=== PATIENT | female | born 1970 | race Hispanic/Latino ===

== ENCOUNTER 2021-04-26 23:35 | Emergency (ER) | payer OTHER ==
[2021-04-27] MEDS ORDERED: LIDOCAINE VISCOUS 2% SOLN 15 ML UDC ONE (00:16)
[2021-04-27] MEDS ORDERED: MAGNES/ALUMIN/SIMET 30ML UCUP ONE (00:16)
[2021-04-27 00:17] LABS: Urine Blood 3+ (Negative); Urine Glucose Trace (Negative); Urine Protein 3+ (Negative); Urine Specific Gravity <=1.005 (1.005-1.030); Urine pH 8.5 (5.0-7.0)
[2021-04-27 00:48] LABS: Absolute Lymphocytes (CBC) 2.7 K/uL (0.7-4.9); Hematocrit 37.1 % (36.0-45.0); Lymphocytes % 39.5 % (15.3-44.8); RBC Red Blood Cell Count 4.74 M/uL (3.86-4.86)
[2021-04-27 00:53] LABS: Protime INR 1.08
[2021-04-27 01:00] LABS: Urine RBC TNTC /HPF (NONE SEEN)
[2021-04-27 01:01] LABS: Urine Bacteria <20 /HPF (<20)
[2021-04-27 01:12] LABS: ALT/SGPT 13 U/L (12-78); AST/SGOT 12 U/L (15-37); Albumin 3.8 g/dL (3.4-5.0); Alkaline Phosphatase 54 U/L (45-117); BUN Blood Urea Nitrogen 10 mg/dL (7-18); Bicarbonate 24 mmol/L (21-32); Bilirubin Direct < 0.1 mg/dL (0-0.2); Bilirubin Total 0.3 mg/dL (0.2-1.0); Glucose Level 100 mg/dL (74-106); Magnesium 2.2 mg/dL (1.8-2.4); NT PRO-BNP 89 pg/mL (<125); Potassium 3.2 mmol/L (3.5-5.1); Protein, Total 7.9 g/dL (6.4-8.2); Sodium Level 142 mmol/L (136-145); Troponin (Emerg Dept Use Only) < 0.02 ng/mL (0.0-0.045)
[2021-04-27] MEDS ORDERED: POTASSIUM CL SA 10 MEQ TAB PO ONE (01:24)
--- NOTE | 2021-04-27 02:12 | ER ---
Nurse's Notes [facility] Name: Janice Atkins Age: 50 yrs Sex: Female : 1970 Arrival Date: 04/26/2021 Time: 23:41 Bed 13 Private MD: Diagnosis: Acute gastritis;Chest pain, unspecified Presentation: 04/26 23:49 Chief complaint: Chief complaint: Patient states: she has been having stomach problems ld1 for 2 weeks - bloating and ABD pain. Pt reports chest pressure and difficulty breathing at this time. SpO2 100% upon arrival to ER. Coronavirus screen: At this time, the client does not indicate any symptoms associated with coronavirus-19. Ebola Screen: No symptoms or risks identified at this time. Initial Sepsis Screen: Does the patient meet any 2 criteria? No. Patient's initial sepsis screen is negative. Does the patient have a suspected source of infection? No. Patient's initial sepsis screen is negative. Risk Assessment: Do you want to hurt yourself or someone else? Patient reports no desire to harm self or others. Onset of symptoms was April 26, 2021. 23:49 Method Of Arrival: Ambulatory ld1 23:49 Acuity: JESÚS 3 ld1 Triage Assessment: 23:53 General: Appears in no apparent distress. comfortable, Behavior is calm, cooperative, ld1 appropriate for age. Pain: Denies pain. EENT: No signs and/or symptoms were reported regarding the EENT system. Neuro: Level of Consciousness is awake, alert, obeys commands, Oriented to person, place, time, situation, Appropriate for age. Cardiovascular: Reports since Chest pressure Denies chest pain, Capillary refill < 3 seconds Patient's skin is warm and dry. Respiratory: Airway is patent Respiratory effort is even, unlabored, Respiratory pattern is regular, symmetrical. GI: Abdomen is round non-distended. : No signs and/or symptoms were reported regarding the genitourinary system. Derm: No signs and/or symptoms reported regarding the dermatologic system. Musculoskeletal: No signs and/or symptoms reported regarding the musculoskeletal system. 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 - Social history:: Smoking status: Patient denies any tobacco usage or history of. Patient/guardian denies using alcohol. Screenin/10 00:00 Abuse screen: Denies threats or abuse. Denies injuries from another. Nutritional dc2 screening: No deficits noted. Tuberculosis screening: No symptoms or risk factors identified. Never had TB. 00:00 Fall Risk None identified. No fall in past 12 months (0 pts). No secondary diagnosis (0 dc2 pts). No IV (0 pts). Ambulatory Aid- None/Bed Rest/Nurse Assist (0 pts). Gait- Normal/Bed Rest/Wheelchair (0 pts) Mental Status- Oriented to own ability (0 pts). Total Akbar Fall Scale indicates No Risk (0-24 pts). Assessment: 00:05 Pain: Pain began a couple of months ago in abdomen but today moved into epigastric area dc2 and chest , describes as "pressure , no pain". 00:05 Pain: Pain does not radiate. dc2 00:05 General: Appears in no apparent distress. comfortable, well groomed, Behavior is calm, dc2 cooperative. Neuro: No deficits noted. Level of Consciousness is awake, alert, obeys commands, confused, Oriented to person, place, time, situation. Cardiovascular: No deficits noted. Reports chest pain, since Chest pressure Denies nausea, shortness of breath, Heart tones present Capillary refill < 3 seconds fingers Rhythm is sinus rhythm. Respiratory: No deficits noted. Airway is patent Breath sounds are clear bilaterally. GI: No deficits noted. Bowel sounds present X 4 quads. Reports upper abdominal pain, epigastric pain, gaseousness. : No deficits noted. Derm: No deficits noted. Musculoskeletal: No deficits noted. No signs and/or symptoms reported regarding the musculoskeletal system. Vital Signs: 04/26 23:49 BP 145 / 74; Pulse 65; Resp 20; Temp 98.3(TE); Pulse Ox 100% on R/A; Weight 83.91 kg; ld1 Height 5 ft. 3 in. (160.02 cm); 04/27 00:00 BP 137 / 62; Pulse 65; Resp 17; Pulse Ox 100% on R/A; Pain 0/10; dc2 00:30 BP 125 / 58; Pulse 65; Resp 17; Pulse Ox 99% on R/A; Pain 0/10; dc2 01:00 BP 119 / 56; Pulse 77; Resp 16; Temp 97.4; Pulse Ox 100% on R/A; Pain 0/10; dc2 02:19 BP 116 / 60; Pulse 60; Resp 16; Temp 98.4; Pulse Ox 100% ; ds4 04/26 23:49 Body Mass Index 32.77 (83.91 kg, 160.02 cm) ld1 ED Course: 04/26 23:41 Patient arrived in ED. ag3 23:53 Triage completed. ld1 23:53 Arm band placed on left wrist. ld1 23:58 Brandin Wolff MD is Attending Physician. sp3 11 00:00 Patient has correct armband on for positive identification. Placed in gown. Bed in low dc2 position. Call light in reach. Side rails up X 1. Adult w/ patient. patient monitor on. Pulse ox on. NIBP on. 00:05 No provider procedures requiring assistance completed. Inserted saline lock: 20 gauge dc2 in right antecubital area, using aseptic technique. Blood collected. 00:05 Patient maintains SpO2 saturation greater than 95% on room air. O2 via Denies sob, dc2 reports no need for oxygen. 00:24 XRAY Chest (1 view) In Process Unspecified. EDMS 00:29 Porsche Woodson, RN is Primary Nurse. dc2 01:02 Basic Metabolic Panel Sent. dc2 02:10 Darrel Vail MD is Referral Physician. sp3 02:21 IV discontinued, intact, bleeding controlled, No redness/swelling at site. Pressure dc2 dressing applied. Administered Medications: 00:20 Drug: GI Cocktail with - (Phenobarbital-Belladonna 10 ml, Maalox Suspension 30 dc2 ml, Lidocaine Liquid 2 % 20 ml) Route: PO; 01:02 Follow up: Response: Marked relief of symptoms dc2 01:27 Drug: Potassium Chloride 40 mEq Route: PO; dc2 Outcome: 02:11 Discharge ordered by . sp3 02:22 Discharged to home ambulatory. dc2 02:22 Condition: stable 02:22 Discharge instructions given to patient, family, Instructed on discharge instructions, follow up and referral plans. Demonstrated understanding of instructions, follow-up care. 02:22 Patient left the ED. dc2 Signatures: Dispatcher [employer] EDBruno Dill ds4 Janice Hagen ag3 Blessing Busch RN RN ld1 Brandin Wolff MD MD sp3 Porsche Woodson RN RN dc2 Corrections: (The following items were deleted from the chart) 04/26 23:53 23:53 Home Meds: None; ld1 ld1
--- NOTE | 2021-04-27 02:12 | EDPHYS ---
Physician Documentation [facility] Name: Janice Atkins Age: 50 yrs Sex: Female : 1970 Arrival Date: 04/26/2021 Time: 23:41 Bed 13 Private MD: ED Physician Brandin Wolff HPI: 04/27 00:49 This 50 yrs old Female presents to ER via Ambulatory with complaints of Chest sp3 Pressure. 00:49 50-year-old female with history of gastritis diagnosed via endoscopy no cardiac history sp3 presents with chest pressure and burning x1 day with start epigastrically and travels superiorly into the chest. Patient denies headache, neck pain, shortness of breath, back pain, lower abdominal pain, nausea, vomiting, diarrhea, extremity pain, or any other symptoms at this time. Pain is described as burning and dull and waxing and waning. She has had similar pain in the past secondary to the gastritis.. 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 - Social history:: Smoking status: Patient denies any tobacco usage or history of. Patient/guardian denies using alcohol. ROS: 04/27 00:50 Constitutional: Negative for fever, chills, and weight loss, Eyes: Negative for injury, sp3 pain, redness, and discharge, ENT: Negative for injury, pain, and discharge, Neck: Negative for injury, pain, and swelling, Respiratory: Negative for shortness of breath, cough, wheezing, and pleuritic chest pain, Back: Negative for injury and pain, : Negative for injury, bleeding, discharge, and swelling, MS/Extremity: Negative for injury and deformity, Skin: Negative for injury, rash, and discoloration, Neuro: Negative for headache, weakness, numbness, tingling, and seizure, Psych: Negative for depression, anxiety, suicide ideation, homicidal ideation, and hallucinations, Allergy/Immunology: Negative for hives, rash, and allergies, Endocrine: Negative for neck swelling, polydipsia, polyuria, polyphagia, and marked weight changes, Hematologic/Lymphatic: Negative for swollen nodes, abnormal bleeding, and unusual bruising. 00:51 All other systems are negative. sp3 Exam: 00:51 Constitutional: This is a well developed, well nourished patient who is awake, alert, sp3 and in no acute distress. Head/Face: Normocephalic, atraumatic. Eyes: Pupils equal round and reactive to light, extra-ocular motions intact. Lids and lashes normal. Conjunctiva and sclera are non-icteric and not injected. Cornea within normal limits. Periorbital areas with no swelling, redness, or edema. ENT: Nares patent. No nasal discharge, no septal abnormalities noted. External auditory canals are clear. Oropharynx with no redness, swelling, or masses, exudates, or evidence of obstruction, uvula midline. Mucous membranes moist. Neck: Trachea midline, no thyromegaly or masses palpated, and no cervical lymphadenopathy. Supple, full range of motion without nuchal rigidity, or vertebral point tenderness. No Meningismus. Chest/axilla: Normal chest wall appearance and motion. Nontender with no deformity. No lesions are appreciated. Cardiovascular: Regular rate and rhythm with a normal S1 and S2. No gallops, murmurs, or rubs. Normal PMI, no JVD. No pulse deficits. Respiratory: Lungs have equal breath sounds bilaterally, clear to auscultation and percussion. No rales, rhonchi or wheezes noted. No increased work of breathing, no retractions or nasal flaring. Abdomen/GI: Soft, non-tender, with normal bowel sounds. No distension or tympany. No guarding or rebound. No evidence of tenderness throughout. Back: No spinal tenderness. No costovertebral tenderness. Full range of motion. Skin: Warm, dry with normal turgor. Normal color with no rashes, no lesions, and no evidence of cellulitis. MS/ Extremity: Pulses equal, no cyanosis. Neurovascular intact. Full, normal range of motion. Neuro: Awake and alert, GCS 15, oriented to person, place, time, and situation. Cranial nerves II-XII grossly intact. Motor strength 5/5 in all extremities. Sensory grossly intact. Cerebellar exam normal. Normal gait. Psych: Awake, alert, with orientation to person, place and time. Behavior, mood, and affect are within normal limits. 00:52 ECG was reviewed by the Attending Physician. Normal sinus rhythm at 62 bpm with normal sp3 intervals, normal QRS, normal axis, normal ST/T-segment without evidence of ischemia. Vital Signs: 04/26 23:49 BP 145 / 74; Pulse 65; Resp 20; Temp 98.3(TE); Pulse Ox 100% on R/A; Weight 83.91 kg; ld1 Height 5 ft. 3 in. (160.02 cm); 04/27 00:00 BP 137 / 62; Pulse 65; Resp 17; Pulse Ox 100% on R/A; Pain 0/10; dc2 00:30 BP 125 / 58; Pulse 65; Resp 17; Pulse Ox 99% on R/A; Pain 0/10; dc2 01:00 BP 119 / 56; Pulse 77; Resp 16; Temp 97.4; Pulse Ox 100% on R/A; Pain 0/10; dc2 02:19 BP 116 / 60; Pulse 60; Resp 16; Temp 98.4; Pulse Ox 100% ; ds4 04/26 23:49 Body Mass Index 32.77 (83.91 kg, 160.02 cm) ld1 MDM: 00:04 Patient medically screened. sp3 00:51 Data reviewed: vital signs, nurses notes. ED course: 50-year-old female with chest sp3 burning and pressure consistent with gastritis type presentation. I am not highly suspicious for acute coronary syndrome, PE, TAD, AAA, sepsis, pneumonia, shock, mediastinitis, pericarditis, any other critical findings at this time. EKG is normal and we will administer GI cocktail to assist. If symptoms improve and work-up is negative we will discharge patient home and follow-up with PCP and cardiology. Given her symptoms of been going on all day, 1 set of negative markers sufficient to assess for ACS.. 02:09 ED course: Patient feels much better after the GI cocktail. Chest x-ray, EKG, sp3 laboratory values demonstrate no significant abnormalities. Will discharge patient home at this time with diagnosis of gastritis.. 04/27 00:02 Order name: Basic Metabolic Panel; Complete Time: 01:17 sp3 04/27 00:02 Order name: CBC with Diff; Complete Time: 01:17 sp3 04/27 00:02 Order name: LFT's; Complete Time: 01:17 sp3 04/27 00:02 Order name: Magnesium; Complete Time: 01:17 sp3 04/27 00:02 Order name: NT PRO-BNP; Complete Time: 01:17 sp3 04/27 00:02 Order name: PT-INR; Complete Time: 01:17 sp3 04/27 00:02 Order name: Troponin (emerg Dept Use Only); Complete Time: 01:17 sp3 04/27 00:02 Order name: XRAY Chest (1 view) sp3 04/27 00:16 Order name: Urine Dipstick-Ancillary; Complete Time: 01:17 EDMS 04/27 00:17 Order name: Urine Microscopic Only ds4 04/27 00:18 Order name: Urine Microscopic Only; Complete Time: 01:17 EDMS 04/27 01:02 Order name: Urine Culture EDMS 04/27 00:02 Order name: EKG; Complete Time: 00:03 sp3 04/27 00:02 Order name: Cardiac monitoring; Complete Time: 01:02 sp3 04/27 00:02 Order name: EKG - Nurse/Tech; Complete Time: 01:02 sp3 04/27 00:02 Order name: IV Saline Lock; Complete Time: 00:17 sp3 04/27 00:02 Order name: Labs collected and sent; Complete Time: 00:17 sp3 04/27 00:02 Order name: O2 Per Protocol; Complete Time: 00:17 sp3 04/27 00:02 Order name: O2 Sat Monitoring; Complete Time: 00:17 sp3 Administered Medications: 00:20 Drug: GI Cocktail with - (Phenobarbital-Belladonna 10 ml, Maalox Suspension 30 dc2 ml, Lidocaine Liquid 2 % 20 ml) Route: PO; 01:02 Follow up: Response: Marked relief of symptoms dc2 01:27 Drug: Potassium Chloride 40 mEq Route: PO; dc2 Disposition Summary: 04/27/21 02:11 Discharge Ordered Location: Home sp3 Condition: Stable sp3 Diagnosis - Acute gastritis sp3 - Chest pain, unspecified sp3 Followup: sp3 - With: Private Physician - When: As needed - Reason: Recheck today's complaints Followup: sp3 - With: Darrel Vail MD - When: Upon discharge from the Emergency Department - Reason: Recheck today's complaints Discharge Instructions: - Discharge Summary Sheet sp3 - Gastritis, Adult sp3 Forms: - Medication Reconciliation Form sp3 - Thank You Letter sp3 - Antibiotic Education sp3 - Prescription Opioid Use sp3 Signatures: Dispatcher [employer] EDBlessing Martines RN RN ld1 Brandin Wolff MD MD sp3 Porsche Woodson RN RN dc2 Corrections: (The following items were deleted from the chart) 04/26 23:53 23:53 Home Meds: None; ld1 ld1
[2021-04-27 07:04] VITALS: BP 116/60; TEMP 98.4; O2SAT 100
--- NOTE | 2021-04-27 07:20 | RAD REPORT ---
EXAM DESCRIPTION: RAD - Chest Single View - 04/27/2021 1:35 am CLINICAL HISTORY: CHEST PAIN COMPARISON: No comparisons FINDINGS: Lines: None. Lungs: No evidence of edema or pneumonia. Pleural: No significant pleural effusions or pneumothorax. Cardiac: The heart size is within normal limits. Bones: No acute fractures. Other: IMPRESSION: No acute cardiopulmonary disease.
--- NOTE | 2021-04-29 20:46 | EKG ---
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
--- OUTSIDE RECORDS SUMMARY | 2021-04-30 18:51 | XMS REPORT | Continuity of Care Document ---
:1970 Author Organization [facility] t Address [address] [place] [address] Care Team Providers Name Role Phone Unavailable Unavailable Unavailable Problems This patient has no known problems. Allergies, Adverse Reactions, Alerts This patient has no known allergies or adverse reactions. Medications This patient has no known medications. Procedures This patient has no known procedures. Results Test Description Test Time Test Comments Results Result Comments Source VITAMIN D TOTAL 25OH 2018-08-19 11:04:00 Test Item Value Reference Range Interpretation Comme nts VITAMIN D TOTAL 25OH (test code = VITD) 32.8 ng/ml 30-100 N PSSERUM [id number] 11:03:00 Test Item Value Reference Range Interpretation Comments SERUM IRON (test code = IRON) 90 ug/dl 50-170 N PSTHYROID STIMULATING [id number] 11:03:00 Test Item Value Reference Range Interpretation Comments THYROID STIMULATING HORMONE (test code 16.983 0.358-3.74 H = TSH) PSCBC W/AUTO [id number] 09:22:00 Test Item Value Reference Range Interpretation Comments WHITE BLOOD CELL (test code = 6.2 X10(3) 4.5-11.0 N WBC) RED BLOOD CELL (test code = RBC) 4.88 X10(6) 4.2-5.4 N HEMOGLOBIN (test code = HGB) 14.5 g/dL 12.5-16.0 N HEMATOCRIT (test code = HCT) 43.5 % 37.0-47.0 N MEAN CELL VOLUME (test code = 89.1 fL 78-100 N MCV) MEAN CELL HGB (test code = MCH) 29.7 pg 26.0-34.0 N MEAN CELL HGB CONCETRATION (test 33.3 g/dl 32.0-36.0 N code = MCHC) RED CELL DISTRIBUTION WIDTH (test 13.5 % 11.5-14.5 N code = RDW) PLATELET COUNT (test code = PLT) 193 X10(3) 150-350 N MEAN PLATELET VOLUME (test code = 10.6 fl 8.7-11.4 N MPV) NEUTROPHIL % (test code = NT%) 59.9 % 36.0-66.0 N LYMPHOCYTE % (test code = LY%) 28.4 % 16-50 N MONOCYTE % (test code = MO%) 9.3 % 0.0-13.0 N EOSINOPHIL % (test code = EO%) 1.9 % 0.0-4.5 N BASOPHIL % (test code = BA%) 0.5 % 0.0-1.5 N NEUTROPHIL # (test code = NT#) 3.7 X10(3) 1.7-7.7 N LYMPHOCYTE # (test code = LY#) 1.8 X10(3) 1.0-4.8 N MONOCYTE # (test code = MO#) 0.6 X10(3) 0.0-0.89 N EOSINOPHIL # (test code = EO#) 0.1 X10(3) 0.0-0.6 N BASOPHIL # (test code = BA#) 0.0 X10(3) 0.0-0.2 N PS
== END 2021-04-27 02:22 | disposition home or self-care (01) ==
LOC: ER 23:35
DX: R07.89 Other chest pain (principal); K29.00 Acute gastritis without bleeding
CPT/HCPCS: 36415; 71045; 80048; 80076; 81003; 81015; 83735; 83880; 84484; 85025; 85610; 87086; 87088; 93005; 99285